=== PATIENT | female | born 2000 | race Caucasian/White ===

== ENCOUNTER 2021-08-29 21:59 | Emergency (ER) | payer MEDICAID, SELFPAY ==
[~2021-08-29] VITALS: Ht 160 cm; Wt 108.9 kg
[2021-08-29 22:05] VITALS: BP_SYST 148
[2021-08-29] MEDS ORDERED: IPRATROPIUM/ALBUTEROL SULFATE 3 ML AMPUL.NEB (DUONEB) INH ONE (22:45)
[2021-08-29] MEDS ORDERED: methylPREDNISolone SOD SUCC/PF 62.5 MG/ML VIAL IM ONE (22:45)
[2021-08-29] MEDS ORDERED: IBUPROFEN 400 MG TABLET PO ONE (23:00)
[2021-08-30 00:01] VITALS: BP_SYST 142
== END 2021-08-30 00:01 | disposition home or self-care (01) ==
LOC: SED 21:59
DX: J45.901 Unspecified asthma with (acute) exacerbation (principal); F41.9 Anxiety disorder, unspecified
CPT/HCPCS: 71045; 93005; 94640; 96372; 99283; J2930

== ENCOUNTER 2021-09-25 23:21 | Emergency (ER) | payer MEDICAID, SELFPAY ==
[~2021-09-25] VITALS: Ht 160 cm; Wt 108.9 kg
[2021-09-25 23:21] VITALS: BP_SYST 140
--- NOTE | 2021-09-25 23:21 | NUR ---
Patient ambulatory to bed 7 for evaluation and treatment
--- NOTE | 2021-09-25 23:47 | NUR ---
ER at bedside examining patient.
[2021-09-26] MEDS ORDERED: ONDANSETRON HCL 4 MG/2 ML VIAL IVP ONE
[2021-09-26 00:38] LABS: BASOPHILS # (AUTO) 0.1 K/uL (0.0-0.2); BASOPHILS % (AUTO) 0.6 % (0.0-2.0); EOSINOPHILS # (AUTO) 0.4 K/uL (0.0-0.4); EOSINOPHILS % (AUTO) 4.6 % (0.0-4.0); HEMATOCRIT 41.2 % (36-48); HEMOGLOBIN 13.9 g/dL (12.0-16.0); LYMPHOCYTES % (AUTO) 33.3 % (20.5-51.5); MEAN CORPUSCULAR HEMOGLOBIN 30 pg (27-31); MEAN CORPUSCULAR HGB CONC 34 % (32-36); MEAN CORPUSCULAR VOLUME 90 fL (79.0-98.0); MONOCYTES # (AUTO) 0.7 K/uL (0.0-1.0); MONOCYTES % (AUTO) 7.8 % (1.7-9.3); NEUTROPHILS # (AUTO) 4.8 K/uL (1.8-7.7); NEUTROPHILS % (AUTO) 53.7 % (40.0-70.0); PLATELET COUNT (AUTO) 244 K/uL (130-430); WHITE BLOOD COUNT (AUTO) 8.9 K/uL (4.5-11.0)
[2021-09-26 00:46] LABS: CALCIUM 8.9 mg/dL (8.4-11.0); CREATININE 0.64 mg/dL (0.55-1.30); POTASSIUM 3.3 mmol/L (3.5-5.1)
[2021-09-26 00:52] LABS: ALBUMIN 3.7 g/dL (3.4-4.8); TOTAL BILIRUBIN 0.1 mg/dL (0.0-1.0)
[2021-09-26 00:57] LABS: BILIRUBIN,URINE NEGATIVE (NEGATIVE); BLOOD, URINE NEGATIVE (NEGATIVE); CLARITY/URINE CLEAR (CLEAR); COLOR,URINE YELLOW (YELLOW); GLUCOSE,URINE NEGATIVE (NEGATIVE); KETONES,URINE NEGATIVE (NEGATIVE); LEUKOCYTE ESTERASE ,URINE NEGATIVE (NEGATIVE); NITRITE, URINE NEGATIVE (NEGATIVE); PROTEIN URINE NEGATIVE (NEGATIVE); UROBILINOGEN,URINE 0.2 (0.2-1.0)
[2021-09-26] MEDS ORDERED: MECLIZINE HCL 25 MG TABLET (ANITVERT) PO ONE (01:45)
--- NOTE | 2021-09-26 02:30 | NUR ---
Patient resting quietly. No acute distress noted. Vital signs within normal range.
[2021-09-26] MEDS ORDERED: MECL-129 PO (03:15)
[2021-09-26 03:22] VITALS: BP_SYST 135
--- NOTE | 2021-09-26 03:22 | NUR ---
Patient given written and verbal discharge instructions by Dr Jackson and verbalizes understanding. ER MD discussed with patient the results and treatment provided. Patient in stable condition. ID arm band removed. IV catheter removed intact and dressing applied, no active bleeding. Rx of Meclizine sent to pharmacy of choice by ER MD. Patient educated on pain management and to follow up with PMD. Pain Scale 0/10.Opportunity for questions provided and answered by Dr Jackson.
== END 2021-09-26 03:22 | disposition home or self-care (01) ==
LOC: SED 23:21
DX: H81.10 Benign paroxysmal vertigo, unspecified ear (principal); J45.909 Unspecified asthma, uncomplicated; Z79.899 Other long term (current) drug therapy
CPT/HCPCS: 36415; 80053; 81003; 83690; 85025; 96374; 99283; J2405; J8597

== ENCOUNTER 2021-10-23 15:27 | Emergency (ER) | payer MEDICAID ==
[~2021-10-23] VITALS: Ht 160 cm; Wt 90.7 kg
[2021-10-23 15:27] VITALS: BP_SYST 121
[~2021-10-23 15:27] MED LIST: MECL-129 PO
[2021-10-23] MEDS ORDERED: MECLIZINE HCL 25 MG TABLET (ANITVERT) PO ONE (15:45)
[2021-10-23] MEDS ORDERED: ONDANSETRON 4 MG ODT TAB PO ONE (15:45)
[2021-10-23] MEDS ORDERED: MECL-108 PO (17:31)
[2021-10-23 17:43] VITALS: BP_SYST 126
== END 2021-10-23 17:41 | disposition home or self-care (01) ==
LOC: SED 15:27
DX: R42 Dizziness and giddiness (principal); J45.909 Unspecified asthma, uncomplicated; Z79.899 Other long term (current) drug therapy
CPT/HCPCS: 99283; J8597; Q0162